=== PATIENT | male | born 1965 | race Caucasian/White ===

== ENCOUNTER 2022-11-25 09:41 | Outpatient (CLI) | payer OTHER, SELFPAY ==
--- NOTE | 2022-11-25 09:56 | ECG_ITS ---
Measurements Intervals [employer] Rate: 83 P: 61 ME: 192 QRS: 1 QRSD: 108 T: 1 QT: 367 QTc: 433 Interpretive Statements SINUS RHYTHM POOR R-WAVE PROGRESSION BORDERLINE ECG NO PREVIOUS ECG AVAILABLE FOR COMPARISON Electronically Signed On 11-25-2022 14:47:13 CDT by Husam Espinosa M.D.
[2022-11-25 12:38] LABS: Anion Gap 9 mmol/L (8-16); Blood Urea Nitrogen 25 mg/dL (9-20); Calcium 9.2 mg/dL (8.4-10.2); Carbon Dioxide 28 mmol/L (22-30); Chloride 99 mmol/L (98-107); Estimated Glomerular Filt Rate > 60; Glucose 84 mg/dL (65-110); Potassium 3.6 mmol/L (3.4-5.0); Sodium 136 mmol/L (137-145)
[2022-11-25 12:39] LABS: Prothrombin Time 13.5 Seconds (11.1-14.7)
[2022-11-25 12:40] LABS: Partial Thromboplastin Time 31.3 SECONDS (22.3-36.8)
== END 2022-11-25 09:42 | disposition home or self-care (01) ==
LOC: ANHSURGERY 09:50
PROVIDERS: Anesthesiology; PCP Family Medicine; Visit Provider Urology
DX: Z01.818 Encounter for other preprocedural examination (principal); I10 Essential (primary) hypertension; Z79.899 Other long term (current) drug therapy; N20.0 Calculus of kidney
CPT/HCPCS: 36415; 80048; 85610; 85730; 87086; 93005

== ENCOUNTER 2022-12-02 01:11 | Day surgery (SDC) | payer OTHER, SELFPAY ==
[2022-11-24 08:41] VITALS: BMI 27.2
--- NOTE | 2022-11-24 08:45 | PC.NURSE ---
Report to the Outpatient Waiting Room, entrance under the green pavilion located off [facility], at time 7:30 on date 12/02/22. Planned Procedure Time: 9:30. Time changes happen often and if your time is changed the preop area will call you the afternoon before. - You and your visitor will be asked to self-screen and do not enter if you have any COVID symptoms. - A mask is optional within the hospital at this time. Patients may have clear liquids (water, carbonated beverages, clear teas, apple juice) until 3 hours prior to surgery (6:30) with a maximum of 20 ounces. - No food from midnight until time of surgery Take the following medications with a SIP of water the morning of surgery: AMLODIPINE DO NOT STOP ANY OF YOUR OTHER PRESCRIPTION MEDICATIONS PRIOR TO SURGERY ?EXCEPT THE FOLLOWING Medications to discontinue per physician: N/A Date to take last dose: N/A Please no make-up, nail venezuelan, hairspray, perfume, deodorant, or body powder the day of surgery. No jewelry (including any body piercings) or valuables the day of surgery, leave them at home. Please take a shower or bath the night before, or the morning of, surgery with an antibacterial soap. Wear comfortable, loose fitting clothing. - Jewelry must be removed prior to entering the operating room. Rings and piercings that are not removed may be cut off. - The hospital will not accept responsibility for valuables. - Please leave all valuables, including medications, at home the day of surgery. If you are going home after surgery, a licensed commercial relief driver must drive you home. - NO public transportation without another adult if you receive anesthesia. - We recommend that an adult stay with you for 24 hours following discharge. - We also recommend that you do not drive, make important decision, drink alcoholic beverages, or take any drugs that were not prescribed by your health care provider for at least 24 hours after your discharge time. Follow any additional instructions given to you from your surgeon. If you or anyone in your household have experienced Covid symptoms in the past week, please notify your surgeon or the nurse liaison at the phone number below for possible testing. Telephone instructions given to PT - ELSI SPENCER and asked if any additional questions and then verbalized understanding. Patient advised to call surgeon office or pre surgery nurse liaison [phone] if any additional questions.
--- NOTE | 2022-12-01 10:01 | WPDANESEPPF ---
Anes - Initial Pre Proc Eval Procedure: Operation Date: 12/02/22 09:30 Proposed Procedures p Left Extracorporeal Shock Wave Lithotripsy - Gerard Milton MD s Cystoscopy, Left Retrograde Pyelogram, Left Stent Placement - Gerard Milton MD Date/Time: 12/01/22 10:01 Surgeon: Gerard Milton MD Pre Op Diagnosis: Lt Renal Stone Patient Data Age: 57 Gender: M Height: 1.78 m Weight: 86.2 kg Allergies Allergy/AdvReac Type Severity Reaction Status Date / Time No Known Allergies Allergy Verified 11/24/22 08:40 Home Medications Medication Instructions Recorded Confirmed Type amlodipine 10 mg tablet 10 mg PO DAILY 11/24/22 11/24/22 History lisinopril 10 1 tablet PO DAILY 11/24/22 11/24/22 History mg-hydrochlorothiazide 12.5 mg tablet Patient hx anesthesia problems: none Family hx anesthesia problems: none Results Review: All pre-operative results and documents have been reviewed as part of the pre-operative evaluation. [facility] Past Medical History Medical History (Updated 12/01/22 @ 10:03 by Alan Anguiano DO) Hypertension Surgical History Surgical History (Updated 12/01/22 @ 10:02 by Alan Anguiano DO) History of appendectomy History of cholecystectomy Social History Social History Smoking packs per day: 1.25 Smoking cigarettes per day: 25.0 Years smoked: 22 Smoking pack-years: 27.50 Smoking status: Former smoker Tobacco type: cigarettes Smoking end date: 04/03/09 Alcohol intake: current Drinks per week: 3 Substance use: never Substance use type: does not use Living arrangements: with family Spiritual care concerns: No Anes - Eval Final PreProcedure Day of Procedure 12/01/22 10:01 Patient weight: overweight Heart: regular rate and rhythm Lungs: clear to auscultation Airway: Mallampati scale class II Neurological: alert and oriented Last oral intake: >/= 8 hours ASA classification: II Emergent: no Anesthetic plan: proceed Anesthesia type and monitoring: general GIVS and standard monitoring Results Review: All pre-operative results and documents have been reviewed as part of the pre-operative evaluation. Informed Consent: The patient's anesthetic plan and its attendant risks and benefits were discussed with the patient/family/POA. Questions were solicited and answers provided to the satisfaction of the patient/family/POA.
[2022-12-02] VITALS (10 sets, daily range): BP systolic 123–145; BP diastolic 74–99; PULSE 81–93; RESP 12–20; TEMP 36.1–36.6; O2SAT 96–100
--- NOTE | ~2022-12-02 | XR_ITS ---
Supine and upright views of the abdomen Clinical history: Lithotripsy Findings: Bowel gas pattern is nonspecific. No evidence for obstruction or free air. 15 mm round ston e present at the left renal pelvis region. Cholecystectomy clips are present. Probable calcified pelv ic phleboliths. Osseous structures are intact. Impression: 15 mm stone at the left renal pelvis region. Reviewed, dictated and finalized at [facility]. Impression: 15 mm stone at the left renal pelvis region.
--- NOTE | 2022-12-02 08:12 | WPDHPUPDATE1 ---
History and Physical Update Update Date/Time: 12/02/22 08:12 History and Physical has been reviewed, including an updated exam of the patient. There are NO changes in the patient's condition. Risks, benefits, and alternatives have been discussed and questions answered. Patient agrees to proceed with procedure. Proceed with cystoscopy, left retrograde pyelogram left stent placement, left ESWL
[2022-12-02] MEDS: LACTATED RINGERS 1,000 ML 30 ML IV CONT (08:44)
[2022-12-02] MEDS: ceFAZolin 2 GM/D5W 50 ML 2 GM/50 ML BAG IVPB (09:50)
[2022-12-02] MEDS: LIDOCAINE HCL 2% GEL UROJET 10 ML PKG MUCOUS MEM (10:08)
--- NOTE | 2022-12-02 10:37 | W.PM.PROC2 ---
Procedure Note - Detailed Date of Procedure 12/02/22 Pre-op Diagnosis Lt Renal Stone Post-op Diagnosis Same Procedure Performed Cystoscopy, left retrograde pyelogram, left stent placement 4.8 Micronesian contour, ESWL left renal calculus 1.5 cm Surgeon Gerard Milton MD Anesthesia General Description of Procedure Patient is taken to the operative suite correctly identified. Once anesthesia was obtained he was placed in the supine position and prepped draped usual sterile fashion. Sixteen Micronesian flexible scope was inserted into the urethra. There were no urethral strictures. He does have some lateral lobe hypertrophy and a slight it median lobe. Bladder is inspected. There were no tumors noted. The left ureteral orifice was cannulated with a guidewire. Ureteral catheter was passed over the guidewire up into the renal pelvis. Pyelogram was performed to confirm placement of the stent in the renal pelvis. 4.8 Micronesian contour stent was then placed with the proximal end in the renal pelvis and the distal in the bladder. 2% viscous lidocaine was inserted into the urethra. Patient was then repositioned with the stone localized in both planes. Two thousand five hundred shocks were given to the stone. There appeared to be fragmentation of the stone. Patient tolerated procedure well without any complications and is taken recovery stable condition. He will follow-up in 7-10 days with KUB. This complete dictation on this patient. Please send a copy of operative note to my office Estimated Blood Loss 0 Drains Yes Packing No Pathology None sent Complications No immediate complications Condition Stable Disposition PACU
== END 2022-12-02 12:47 | disposition home or self-care (01) ==
PROVIDERS: PCP Family Medicine; Visit Provider Urology
PROC: (CPT 50590; principal; 2022-12-02 09:30)
PROC: (CPT 52352; 2022-12-02 09:30)
DX: N20.0 Calculus of kidney (principal); I10 Essential (primary) hypertension; Z87.891 Personal history of nicotine dependence
CPT/HCPCS: 52332; 50590; 36415; 74018; 80048; 85610; 85730; 87086; 93005; C1758; C1769; C2617; J0690; J1100; J2250; J2405; J2704; J3010; J7030; J7120; Q9966

== ENCOUNTER 2022-12-09 08:16 | Outpatient (CLI) | payer OTHER, SELFPAY ==
--- NOTE | ~2022-12-09 | XR_ITS ---
EXAMINATION: XR abdomen/kub 1V INDICATION: Calcium kidney stone TECHNIQUE: Supine views of the abdomen were obtained on 2 radiographs. COMPARISON: 12/02/2022 FINDINGS: There has been interval treatment of the previously described stone of the left renal pelvi s and insertion of a left internal ureteral stent which is in expected position. There appear to be s tone fragments in the left kidney lower pole. Stone fragments are also seen along the distal aspect o f the stent near the urinary bladder. There are phleboliths of the pelvis. Surgical clips in the righ t upper quadrant are likely from prior cholecystectomy. There is elevation of the right hemidiaphragm . IMPRESSION: 1. Interval treatment of the previously described left renal pelvis stone with placement of an consultants intern al ureteral stent in expected position and stone fragments in the left kidney lower pole and adjacent to the distal aspect of the stent. Reviewed, dictated and finalized at location B. IMPRESSION: 1. Interval treatment of the previously described left renal pelvis stone with placement of an internal ureteral stent in expected position and stone fragment s in the left kidney lower pole and adjacent to the distal aspect of the stent.
== END 2022-12-09 08:17 | disposition home or self-care (01) ==
LOC: ANHIMG 08:20
PROVIDERS: PCP Family Medicine; Visit Provider Urology
DX: N20.0 Calculus of kidney (principal); Z96.0 Presence of urogenital implants
CPT/HCPCS: 74018

== ENCOUNTER → 2022-12-19 06:59 | Outpatient (CLI) | payer OTHER, SELFPAY ==
--- NOTE | ~2022-12-19 | XR_ITS ---
EXAMINATION: XR abdomen/kub 1V INDICATION: Calculus of the kidney TECHNIQUE: Supine views of the abdomen were obtained on 2 radiographs. COMPARISON: 12/09/2022 FINDINGS: A left internal ureteral stent is in expected position. Stone fragments measuring 1.5 cm in aggregate are seen in the left kidney lower pole. There are multiple stone fragments adjacent to the proximal aspect of the internal ureteral stent. Stones previously seen adjacent to the distal stent appear to have passed. No additional urolithiasis is identified. There are phleboliths in the pelvis. The visualized lung bases are clear. Surgical clips in the right upper quadrant are likely from prio r cholecystectomy. IMPRESSION: 1. Left internal ureteral stent in expected position with persistent stones adjacent to the proximal aspect of the stent and passage of stones previously seen adjacent to the distal aspect of the stent. Reviewed, dictated and finalized at location B. IMPRESSION: 1. Left internal ureteral stent in expected position with persistent stones adj acent to the proximal aspect of the stent and passage of stones previously seen adjacent to the distal aspect of the stent.
== END ==
PROVIDERS: PCP Urology; Visit Provider Urology
DX: N20.0 Calculus of kidney (principal)
CPT/HCPCS: 74018

== ENCOUNTER 2022-12-27 07:52 | Outpatient (CLI) | payer OTHER, SELFPAY ==
[2022-12-27 08:29] LABS: INR 0.9; Prothrombin Time 12.8 Seconds (11.1-14.7)
[2022-12-27 08:30] LABS: Partial Thromboplastin Time 28.3 SECONDS (22.3-36.8)
== END 2022-12-27 07:53 | disposition home or self-care (01) ==
LOC: ANHSURGERY 07:54
PROVIDERS: PCP Family Medicine; Visit Provider Urology
DX: Z01.818 Encounter for other preprocedural examination (principal); N20.0 Calculus of kidney
CPT/HCPCS: 36415; 85610; 85730; 87086

== ENCOUNTER 2022-12-30 00:38 | Day surgery (SDC) | payer OTHER, SELFPAY ==
--- NOTE | 2022-12-26 09:25 | PC.NURSE ---
Report to the Outpatient Waiting Room, entrance under the green pavilion located off [facility], at time 6:30 on date 12/30/22. Planned Procedure Time: 8:30. Time changes happen often and if your time is changed the preop area will call you the afternoon before. - You and your visitor will be asked to self-screen and do not enter if you have any COVID symptoms. - A mask is optional within the hospital at this time. Patients may have clear liquids (water, carbonated beverages, clear teas, apple juice) until 3 hours prior to surgery (5:30) with a maximum of 20 ounces. - No food from midnight until time of surgery Take the following medications with a SIP of water the morning of surgery: AMLODIPINE DO NOT STOP ANY OF YOUR OTHER PRESCRIPTION MEDICATIONS PRIOR TO SURGERY ?EXCEPT THE FOLLOWING Medications to discontinue per physician: N/A Date to take last dose: N/A Please no make-up, nail indian, hairspray, perfume, deodorant, or body powder the day of surgery. No jewelry (including any body piercings) or valuables the day of surgery, leave them at home. Please take a shower or bath the night before, or the morning of, surgery with an antibacterial soap. Wear comfortable, loose fitting clothing. - Jewelry must be removed prior to entering the operating room. Rings and piercings that are not removed may be cut off. - The hospital will not accept responsibility for valuables. - Please leave all valuables, including medications, at home the day of surgery. If you are going home after surgery, a licensed tow bar driver must drive you home. - NO public transportation without another adult if you receive anesthesia. - We recommend that an adult stay with you for 24 hours following discharge. - We also recommend that you do not drive, make important decision, drink alcoholic beverages, or take any drugs that were not prescribed by your health care provider for at least 24 hours after your discharge time. Follow any additional instructions given to you from your surgeon. If you or anyone in your household have experienced Covid symptoms in the past week, please notify your surgeon or the nurse liaison at the phone number below for possible testing. Telephone instructions given to PT - ELSI SPENCER and asked if any additional questions and then verbalized understanding. Patient advised to call surgeon office or pre surgery nurse liaison [phone] if any additional questions.
[2022-12-26 09:29] VITALS: BMI 26.9
[2022-12-30] VITALS (8 sets, daily range): BP systolic 96–130; BP diastolic 68–95; PULSE 73–84; RESP 14–20; TEMP 36.3–36.8; O2SAT 96–100; BMI 26.3
--- NOTE | ~2022-12-30 | XR_ITS ---
EXAMINATION: XR abdomen/kub 1V DATE: 12/30/2022 06:45 INDICATION: Kidney stone. TECHNIQUE: A supine view of the abdomen on 2 radiographs was obtained. COMPARISON: Abdomen radiographs 12/19/2022 FINDINGS: There are no dilated loops of bowel. There is a left internal ureteral stent in expected po sition. There are phleboliths in the pelvis. There are greater than 10 stones in the left kidney and left renal pelvis in clusters with the largest stone measuring at least 4 mm. IMPRESSION: 1. Stones in the left kidney and left renal pelvis with left internal ureteral stent in expected posi tion. Reviewed, dictated and finalized at location E. IMPRESSION: 1. Stones in the left kidney and left renal pelvis with left internal ureteral stent in expected position.
--- NOTE | 2022-12-30 06:46 | P.PNAN_ITS ---
Anes - Initial Pre Proc Eval Procedure: Operation Date: 12/30/22 08:30 Proposed Procedures p Left Renal Extracorporeal Shock Wave Lithotripsy - Gerard Milton MD Date/Time: 12/30/22 06:46 Surgeon: Gerard Milton MD Pre Op Diagnosis: Lt Renal Stone Patient Data Age: 57 Gender: M Height: 1.78 m Weight: 85.3 kg Allergies Allergy/AdvReac Type Severity Reaction Status Date / Time No Known Allergies Allergy Verified 12/26/22 09:29 Home Medications Medication Instructions Recorded Confirmed Type amlodipine 10 mg tablet 10 mg PO DAILY 11/24/22 12/26/22 History lisinopril 10 1 tablet PO DAILY 11/24/22 12/26/22 History mg-hydrochlorothiazide 12.5 mg tablet Patient hx anesthesia problems: none Family hx anesthesia problems: none Results Review: All pre-operative results and documents have been reviewed as part of the pre- operative evaluation. [facility] Past Medical History Medical History Hypertension Surgical History Surgical History History of appendectomy History of cholecystectomy Social History Social History Smoking packs per day: 1.25 Smoking cigarettes per day: 25.0 Years smoked: 22 Smoking pack-years: 27.50 Smoking status: Former smoker Tobacco type: cigarettes Smoking end date: 04/03/09 Alcohol intake: current Drinks per week: 3 Substance use: never Substance use type: does not use Living arrangements: with family Spiritual care concerns: No Anes - Eval Final PreProcedure Day of Procedure 12/30/22 06:46 Patient weight: overweight Heart: regular rate and rhythm Lungs: clear to auscultation Airway: Mallampati scale class II Neurological: alert and oriented Last oral intake: >/= 8 hours ASA classification: II Emergent: no Anesthetic plan: proceed Anesthesia type and monitoring: general LMA and standard monitoring Results Review: All pre-operative results and documents have been reviewed as part of the pre- operative evaluation. Informed Consent: The patient's anesthetic plan and its attendant risks and benefits were discussed with the patient/family/POA. Questions were solicited and answers provided to the satisfaction of the patient/family/POA.
--- NOTE | 2022-12-30 08:35 | WPDHPUPDATE1 ---
History and Physical Update Update Date/Time: 12/30/22 08:35 History and Physical has been reviewed, including an updated exam of the patient. There are NO changes in the patient's condition. Risks, benefits, and alternatives have been discussed and questions answered. Patient agrees to proceed with procedure. Proceed with left renal eswl
[2022-12-30] MEDS: ceFAZolin 2 GM/D5W 50 ML 2 GM/50 ML BAG IVPB (08:37)
--- NOTE | 2022-12-30 09:17 | W.PM.PROC2 ---
Procedure Note - Detailed Date of Procedure 12/30/22 Pre-op Diagnosis Lt Renal Stone Post-op Diagnosis Same Procedure Performed Lithotripsy left renal calculi Surgeon Gerard Milton MD Anesthesia General Description of Procedure Patient is taken to the operative suite correctly identified. Once anesthesia was obtained the stones in the lower pole were localized. They were visualized in both planes. Two thousand five hundred shocks were given to this area. Patient tolerated procedure well and complications was taken recovery stable condition. He will follow-up in 7-10 days with KUB. This completes dictation. Please send a copy of this to my office Estimated Blood Loss 0 Drains Yes Packing No Pathology None sent Complications No immediate complications Condition Stable Disposition PACU
[2022-12-30] MEDS: LACTATED RINGERS 1,000 ML 30 ML IV CONT (09:21)
--- NOTE | 2022-12-30 10:08 | P.OP_ITS ---
Procedure Note - Detailed Date of Procedure 12/30/22 Pre-op Diagnosis Left ureteral calculus Post-op Diagnosis Same Procedure Performed Lithotripsy of left ureteral calculi Surgeon Gerard Milton MD Anesthesia General Description of Procedure Patient is taken the operative suite correctly identified. Once anesthesia was obtained he was placed in the supine position with the stones localized in both planes. He had a collection near the proximal ureter. Total of 3000 shocks were given along the stent. Patient tolerated procedure well without any complications and was taken recovery stable condition. He will follow-up in 7- 10 days with KUB and hopefully be able to remove the stent at that time. This completes dictation please a copy of op note to my office. Estimated Blood Loss 0 Drains Yes (Has a left ureteral stent) Packing No Pathology None sent Complications No immediate complications Condition Stable Disposition PACU
== END 2022-12-30 10:58 | disposition home or self-care (01) ==
PROVIDERS: PCP Family Medicine; Visit Provider Urology
PROC: (CPT 50590; principal; 2022-12-30 08:30)
DX: N20.0 Calculus of kidney (principal); I10 Essential (primary) hypertension; Z87.442 Personal history of urinary calculi; Z87.891 Personal history of nicotine dependence; Z96.0 Presence of urogenital implants
CPT/HCPCS: 50590; 36415; 74018; 85610; 85730; 87086; J0690; J1100; J2250; J2405; J2704; J3010; J7120

== ENCOUNTER 2023-01-06 08:33 | Outpatient (CLI) | payer OTHER, SELFPAY ==
--- NOTE | ~2023-01-06 | XR_ITS ---
Supine and upright views of the abdomen Clinical history: Renal stone COMPARISON: 12/30/2022 Findings: Bowel gas pattern is nonspecific. No evidence for obstruction or free air. Left ureteral st ent is in place. Presumed calcified pelvic phleboliths are unchanged. Left-sided renal stones are pre sent, at the left lower pole and left renal pelvis and proximal left ureter. Osseous structures are i ntact. Impression: Left-sided nephrolithiasis, as detailed above, with left ureteral stent in place. Reviewed, dictated and finalized at location M. Impression: Left-sided nephrolithiasis, as detailed above, with left ureteral stent in plac e.
== END 2023-01-06 08:34 | disposition home or self-care (01) ==
PROVIDERS: PCP Family Medicine; Visit Provider Urology
DX: N20.0 Calculus of kidney (principal); Z96.0 Presence of urogenital implants
CPT/HCPCS: 74018

== ENCOUNTER 2023-02-09 08:43 | Outpatient (CLI) | payer OTHER, SELFPAY ==
--- NOTE | ~2023-02-09 | XR_ITS ---
EXAMINATION: XR abdomen/kub 1V INDICATION: Calcium kidney stone TECHNIQUE: Supine views of the abdomen were obtained on 2 radiographs. COMPARISON: 01/06/2023 FINDINGS: The left internal ureteral stent has been removed. There is a 3 mm stone of the left kidney lower pole. No stones are identified in the ureters. There are phleboliths of the pelvis. Surgical c lips in the right upper quadrant are likely from prior cholecystectomy. The bowel gas pattern is norm al. IMPRESSION: 1. Interval removal of the left internal ureteral stent without persistent ureteral stone identified. 2. Left nephrolithiasis. Reviewed, dictated and finalized at location L. DING ARCHITECT IMPRESSION: 1. Interval removal of the left internal ureteral stent without persistent uret eral stone identified. 2. Left nephrolithiasis.
== END 2023-02-09 08:44 | disposition home or self-care (01) ==
PROVIDERS: PCP Family Medicine; Visit Provider Urology
DX: N20.0 Calculus of kidney (principal)
CPT/HCPCS: 74018